=== PATIENT | female | born 2000 | race Two or more races ===

== ENCOUNTER 2020-01-17 22:25 | Emergency (ER) | payer MEDICAID ==
[~2020-01-17] VITALS: Ht 154.9 cm; Wt 45.4 kg
[2020-01-18] VITALS: BP 129/59
[2020-01-18] MEDS ORDERED: SIMETHICONE 80 MG CHEWABLE TABLET PO ONE
== END 2020-01-18 00:12 | disposition home or self-care (01) ==
LOC: ER 22:32
DX: K59.00 Constipation, unspecified (principal)
CPT/HCPCS: 74176; 81001; 81025